=== PATIENT | male | born 1965 | race Caucasian/White ===

== ENCOUNTER 2021-07-26 09:31 | Outpatient (CLI) | payer OTHER, SELFPAY ==
--- NOTE | 2021-07-26 10:00 | ASPOS_PTH ---
PATIENT: REGLA CALHOUN LOC: [facility] U#:[id number] AGE/SX: 56/M ROOM: RE07/26/[address]: Dr. Riley Ross MD : 1965 BED: DIS: 07/26/2021 SPEC #: [id number] RECD: 07/26/21 10:30 STATUS: GÓMEZ RENolvia #: [id number] YAMINI: 07/26/21 10:[address]: Riley Ross DEPT: CYTOLOGY RECD BY: Guerline Barrera ENTERED: 07/26/21 11:48 SP TYPE: ASP HERE OTHR DR: Dr. 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 AM:shahbaz 07/27/2021 COMMENT The specimen is evaluated at the time of FNA by Dr. Valencia. Immediate Evaluation = Pleomorphic adenoma. CYTOLOGY STUDY Slides are reviewed. CYTOLOGY GROSS Received is 0.2 ml of pink mucoid material labeled with the patient's name, and designated right parotid mass. Three imprints and two paps are made from the submitted fluid and the rest is added to CytoLyt for cell block preparation. Submitted for cytology study. / AM:shahbaz 07/26/2021 TC:1 CPT: 87783, 54189, 77673
== END 2021-07-26 23:59 | disposition home or self-care (01) ==
LOC: LAB 09:36
PROVIDERS: PCP Family Medicine; Referring Provider Otolaryngology; Visit Provider Otolaryngology
DX: R22.0 Localized swelling, mass and lump, head (principal)
CPT/HCPCS: 10021; 88161; 88305

== ENCOUNTER 2022-01-04 05:35 | Day surgery (SDC) | payer SELFPAY, OTHER ==
--- NOTE | 2022-01-03 07:04 | EKG12_ITS ---
Test Reason : PRE-OP Blood Pressure : / mmHG Vent. Rate : 064 BPM Atrial Rate : 064 BPM P-R Int : 128 ms QRS Dur : 086 ms QT Int : 414 ms P-R-T Axes : 008 -03 030 degrees QTc Int : 427 ms Normal sinus rhythm Normal ECG Confirmed by ROBERTA AUGUSTE, JUDE ([id number]), legal editor RAGHAVENDRA MANJARREZ ([id number]) on 01/03/2022 1:11:15 PM Referred By: Jaquan Ross Confirmed By:JUDE GRANADOS MD
[2022-01-03 08:48] LABS: Hematocrit 46.1 % (40-54); Hemoglobin 16.1 g/dL (13.0-16.5); Mean Corp Hgb Conc 34.9 g/dL (32-36); Mean Corpuscular Hgb 30.6 pg (27.0-32.0); Mean Corpuscular Volume 87.6 fL (80-94); Mean Platelet Vol. 9.3 fl (6.2-12.0); Platelet Count 140 K/mm3 (150-450); RBC Distribution Width CV 12.8 % (11.6-14.6); RBC Distribution Width SD 41.1 fl (35.1-43.9); Red Blood Count 5.26 M/mm3 (4.6-6.2); White Blood Count 5.5 K/mm3 (4.4-11.0)
[2022-01-03 09:16] LABS: Anion Gap 2 (5-15); BUN 13 mg/dL (7-18); BUN/Creat Ratio 13.4 RATIO (10-20); Calcium,Total 9.3 mg/dL (8.5-10.1); Chloride 106 mmol/L (98-107); Creatinine, Serum 0.97 mg/dL (0.70-1.30); EST Glomerular Filtration Rate 86 mL/min (>60); Est Glom Filt Rate - Afr Amer 104 mL/min (>60); Glucose 95 mg/dL (74-106); Potassium 3.6 mmol/L (3.5-5.1); Sodium Level 140 mmol/L (136-145)
[2022-01-04] VITALS (10 sets, daily range): BP systolic 120–147; BP diastolic 74–97; PULSE 73–109; RESP 14–18; TEMP 36.4–37.1; O2SAT 94–100; BMI 25.4
[2022-01-04] MEDS: Lactated Ringers 1,000 ML 15 ML IV ×3 (06:44→14:01)
--- NOTE | 2022-01-04 07:30 | PAR_PTH ---
PATIENT: REGLA CALHOUN LOC: [facility] U#:[id number] AGE/SX: 56/M ROOM: RE01/04/[address]: Dr. Riley Ross MD : 1965 BED: DIS: 01/04/2022 SPEC #: [id number] RECD: 01/04/22 14:46 STATUS: GÓMEZ PEGUERO #: [id number] YAMINI: 01/04/22 07:[address]: Riley Ross DEPT: SURGICAL PATHOLOGY RECD BY: Guerline Barrera ENTERED: 01/05/22 08:17 SP TYPE: PAROTID OTHR DR: Dr. Miah Rodriguez MD Tissues: Parotid gland, NOS Procedures: Surgery Specimen Level V HEADER OPERATION: Superficial parotidectomy, SMAS flap, fat graft PRE-OP DIAGNOSIS: Localized swelling, mass and lump, head TISSUE SUBMITTED: Right parotid mass MICROSCOPIC DIAGNOSIS Right parotid mass, superficial parotidectomy: Pleomorphic adenoma. One out of one benign lymph node. Focal mild chronic inflammation. AM:shahbaz 01/06/2022 COMMENT Reference is made to the patient's previous fine needle aspiration of right parotid mass ([id number]) in which pleomorphic adenoma was identified. Case has been reviewed in consultation with Dr. Emmanuel who concurs with the above diagnosis. IDC:JUNIE MICROSCOPIC DESCRIPTION Slides are reviewed. GROSS DESCRIPTION Received in fixative is one container labeled with the patient's name and designated right parotid mass. The specimen consists of a piece of glandular tissue weighing 10.1 gm and measuring 3.5 x 3 x 2 cm. Serial sections reveal a round santa, focally friable mass measuring 3 x 2 x 1.5 cm. Focal areas of hemorrhage are also noted. The entire specimen is submitted in eight cassettes from one end to another. / JUNIE:shahbaz 01/05/2022 TC:1 CPT: 52334
[2022-01-04] MEDS: Clindamycin 900 MG/50 ML BAG 75 MG IV (08:40)
[2022-01-04] MEDS: Mupirocin Ointment 22gm Tube 1 APPLIC (09:00)
[2022-01-04] MEDS: Lidocaine 1% /Epi 1:100 (20ml) 20 ML Vial (12:45)
--- NOTE | 2022-01-04 14:07 | OP.PCM_ITS ---
Problems Associated Problem List Diagnoses (1) Parotid adenoma: Report of Operation Date of Procedure: 01/04/22 Pre-Operative Diagnosis: right parotid mass Post-Operative Diagnosis: right parotid mass Surgery/Procedure Performed:: 1. superficial parotidectomy, right 2. superficial musculoaponeurotic system flap 3. abdominal fat graft Surgeon: Jaquan Ross single pass soil stabilizer operator: Cristofer Ronquillo Type of Anesthesia: General Description of Procedure: on the day of the procedure, after appropriate informed consent was obtained, the patient was brought to the operating room and placed in supine position on the operating room table. he was placed under general endotracheal anesthesia by the anesthesiologist. the endotracheal tube was secured. facial nerve monitoring electrodes were placed in the right face. the neck and abdomen were prepped and draped in sterile fashion. a right sided modified yarelis incision wa s made with a 15 blade. the preauricular area was dissected with a metsenbaum scissor in the subcutaneous fat plane, 4cm anterior. the superficial musculoaponeurotic system (SMAS) was incised just anterior to the tragus and dissected out anteriorly. the SMAS flap was developed and joined with the platysma muscle inferiorly. the tragal pointer was dissected with an iris scissor in a submucoperichondrial plane. the inferior portion of the parotid was dissected off of the sternocleidomastoid with the bovie. 1cm inferior and deep to the tragal pointer, the main trunk of the facial nerve was located with a perez dissector. this was confirmed many times with the nerve monitor. the pes anserinus was located and the inferior division was dissected. each branch was isolated and left intact. the gland was removed from an inferior to superior dissection, until the superficial gland with the tumor was removed. hemostasis was achieved. a 4cm transverse incision was made in the left lower quadrant. the subcutaneous fat was dissected with a Metzenbaum scissor and a 8cm x 4 cm fat graft was harvested. hemostasis was achieved with the bipolar, a basilio was placed and the incision was closed with 4-0 vicryl and 4-0 maxon. the fat graft was placed in the parotidectomy defect and sutured at numerous points using 4-0 vicryl. the SMAS flap was closed over the fat graft with 4-0 vicryl. a 15 kinyarwanda FAUZIA drain was placed and sutured. the incision was closed with 4-0 vicryl and 5-0 nylon. he was awoken by the anesthesiologist and transferred to the PACU in stable condition.
--- NOTE | 2022-01-04 14:08 | DCINST_ITS ---
Discharge Instructions Diet Discharge Diet: No restrictions Activity Discharge Activity: May Not Shower Dressing / Incision Call your doctor if your incision/area has: Sudden Increased Bleeding Additional Dressing/Incision Instructions:: mupirocin to incision three times daily; record FAUZIA output; wear abdominal binder Follow Up Care Please Follow Up With: Jaquan Ross MD When: monday (tomorrow) at [facility] [place] ([facility]) Test Results: Test results from this visit will be discussed in further detail at your follow- up appointment, if applicable. Discharge Plan Admission Attending Provider: Jaquan Ross Primary Care Provider: Miah Rodriguez Discharge Orders/Prescriptions Prescriptions: No Action NK Other Ambulatory Orders: 12 Lead EKG (Routine) Location: None Selected Ordered By: Dr. Joe Estrada Referrals / Follow Up: Miah Rodriguez MD [Primary Care Provider] - Disposition Disposition (needs filled in before D/C Order can be placed): Home, Self Care
--- NOTE | 2022-01-04 17:15 | SUR.PHASEII ---
Compression Drsg applied to Rt Neck drsg with folded ABD x2 and medipore tape. Pt and family instructed per Dr Martini's instructions to continue to relieve air from FAUZIA bulb in attempt to achieve suction while FAUZIA potentially seals off. pt and verbalize understanding.
== END 2022-01-04 18:02 | disposition home or self-care (01) ==
LOC: SDC 05:39 → AC 05:39
PROVIDERS: PCP Family Medicine; Referring Provider Otolaryngology; Visit Provider Otolaryngology
PROC: (CPT 42415; principal; 2022-01-04 07:00)
DX: D11.0 Benign neoplasm of parotid gland (principal); K21.9 Gastro-esophageal reflux disease without esophagitis; Z87.891 Personal history of nicotine dependence
CPT/HCPCS: 42415; 00100; 36415; 80048; 85027; 88305; 88307; 93005; J7120; J2405